=== PATIENT | female | born 1945 | race Caucasian/White ===

== ENCOUNTER 2022-10-02 11:46 | Emergency (ER) | payer OTHER ==
[~2022-10-02] VITALS: Ht 167.6 cm; Wt 72.6 kg
[~2022-10-02 11:46] MED LIST: FEN12PAT TD; GABA-529 PO; MYCOLOG15 TP; OLME1TAB88 PO; OXYC10TA56 PO
[2022-10-02 12:25] VITALS: BP_SYST 136
== END 2022-10-02 13:00 | disposition home or self-care (01) ==
LOC: SED 11:46
DX: T18.9XXA Foreign body of alimentary tract, part unspecified, initial encounter (principal); I10 Essential (primary) hypertension; Z79.899 Other long term (current) drug therapy; W45.8XXA Other foreign body or object entering through skin, initial encounter; Y93.89 Activity, other specified; Y92.89 Other specified places as the place of occurrence of the external cause; Y99.8 Other external cause status
CPT/HCPCS: 99281